=== PATIENT | male | born 1965 | race Caucasian/White ===

== ENCOUNTER 2018-05-10 21:35 | Emergency (ER) | payer OTHER ==
[~2018-05-10] VITALS: Ht 188 cm; Wt 83.9 kg
[2018-05-10 21:41] VITALS: BP 133/76
[2018-05-10] MEDS ORDERED: DIPHTH,PERTUSS(ACELL),TET TOX 0.5 ML DISP.SYRIN. VAX IM ONE (22:00)
--- NOTE | 2018-05-10 22:07 | PHYS DOC ---
Past Medical History Past Medical History: No Pertinent History Past Surgical History: No Surgical History Additional Information: 1 PPD Alcohol Use: None Drug Use: None Adult General Chief Complaint Chief Complaint: LACERATION/AVULSION HPI HPI Patient is a 52 year old male who presents with right middle finger laceration , patient states he was moving a steel chente which fell and smashed his right middle finger. Patient is right-handed. Review of Systems Review of Systems Constitutional: Denies fever or chills [] Musculoskeletal: Denies back pain or joint pain [] Integument: Reports right middle finger laceration Neurologic: Denies headache, focal weakness or sensory changes [] All other systems were reviewed and found to be within normal limits, except as documented in this note. Current Medications Current Medications Current Medications Medications (Trade) Dose Ordered Sig/Lea Start Time Stop Time Status Last Admin Dose Admin Acetaminophen/ Hydrocodone Bitart (Lortab 5/325) 1 tab 1X ONCE 05/10/18 22:30 05/10/18 22:31 DC Diphtheria/ Tetanus/Acell Pertussis (Boostrix) 0.5 ml ONCE ONCE 05/10/18 22:00 05/10/18 22:01 UNV Lidocaine/Sodium Bicarbonate (Buffered Lidocaine 1%) 6 ml 1X ONCE 05/10/18 22:30 05/10/18 22:31 DC 05/10/18 22:01 6 ML Allergies Allergies Allergies Coded Allergies Type Severity Reaction Last Updated Verified No Known Drug Allergies 05/10/18 No Physical Exam Physical Exam Constitutional: Well developed, well nourished, no acute distress, non-toxic appearance. [] Skin: Does aspect of the right middle finger at the PIP joint with a laceration approximately 2 cm long, this no obvious tendon involvement. Full range of motion including flexion and extension of the right middle finger at the PIP joint, DIP joint and MIP joint. Adequate radial, medial sensation to the right middle finger. +2 right radial pulse. Cap refill less than 2 seconds the right middle finger. Back: No tenderness, no CVA tenderness. [] Extremities: No tenderness, no cyanosis, no clubbing, ROM intact, no edema. [] Neurologic: Alert and oriented X 3, normal motor function, normal sensory function, no focal deficits noted. [] Psychologic: Affect normal, judgement normal, mood normal. [] Current Patient Data Vital Signs Vital Signs Date Time Temp Pulse Resp B/P (MAP) Pulse Ox O2 Delivery O2 Flow Rate FiO2 05/10/18 21:41 97.9 70 18 133/76 (95) 99 Room Air 97.9 EKG EKG [] Radiology/Procedures Radiology/Procedures Laceration/Wound Repair Wound Location: Right middle finger laceration Wound's Depth, Shape: Horizontal Wound Length (cm): Approximately 2 cm Wound Explored: clean Irrigated w/ Saline (ccs): 250 Betadine Prep?: Yes Anesthesia: 1% buffered lidocaine Volume Anesthetic (ccs): 3 mL Wound Repaired With: Ethilon Suture Size/Type: 5.0/interrupted sutures Number of Sutures: 5 Progress : Wound was covered with nonstick dressing and splinted by me. Neurovascular exam is intact post splinting. Course & Med Decision Making Course & Med Decision Making Pertinent Labs and Imaging studies reviewed. (See chart for details) This is a 52-year-old male patient presented to the ED today with right middle finger laceration after being cut at work. See history of present illness. Tetanus up-to-date. Right middle finger x-rays interpreted by radiologist are negative for any acute findings. Laceration was repaired by me as noted in procedures. Wound care instructions and return precautions provided. Follow-up with the PCP or ED in 7-10 days for suture removal Dragon Disclaimer Dragon Disclaimer This electronic medical record was generated, in whole or in part, using a voice recognition dictation system. Departure Departure Impression: Primary Impression: Laceration of middle finger Disposition: 01 HOME, SELF-CARE Condition: STABLE Patient Instructions: Fingertip Laceration Additional Instructions: You have right middle finger laceration that was closed with stitches. You can shower, keep the area clean and dry. Apply Neosporin to the area twice a day. Monitor the area for any worsening condition including increased redness warmth or yellow drainage from the area and return to the ED if they occur. Follow-up with your own doctor or the emergency room in 7-10 days for suture removal. Complete your antibiotics. Return to the ED at any point wound condition worsens. Scripts Cephalexin (CEPHALEXIN) 500 Mg Tablet 1 TAB PO QID, #40 TAB Prov: RAÚL STEVENS TELEGRAPH OFFICE MANAGER 05/10/18 Problem Qualifiers Primary Impression: Laceration of middle finger Encounter type: initial encounter Damage to nail status: without damage Foreign body presence: without foreign body Laterality: right Qualified Codes: S61.212A - Laceration without foreign body of right middle finger without damage to nail, initial encounter RAÚL STEVENS APRN May 10, 2018 22:07
--- NOTE | 2018-05-10 22:23 | RAD ---
EXAM: Right lung finger, 3 views. HISTORY: Laceration. COMPARISON: None. FINDINGS: 3 views of the right lung finger are obtained. There is no fracture, dislocation or subluxation. No radiodense foreign body is seen. There is a tiny ossicle along the palmar distal aspect of the third phalanx. There is soft tissue swelling surrounding the third proximal interphalangeal joint. IMPRESSION: No acute osseous finding. No radiodense foreign body. Electronically signed by: Raven Manrique MD (05/10/2018 10:19 PM) [facility]
[2018-05-10] MEDS ORDERED: HYDROcodone/APAP 5/325MG 1 TAB TABLET PO ONE (22:30)
[2018-05-10] MEDS ORDERED: LIDOCAINE WITH 8.4% SOD BICARB 3 ML DISP.SYRIN. INJ ONE (22:30)
[2018-05-10] MEDS ORDERED: CEPH500T PO (22:49)
== END 2018-05-10 23:21 | disposition home or self-care (01) ==
LOC: ER 21:35
DX: S61.212A Laceration without foreign body of right middle finger without damage to nail, initial encounter (principal); F17.200 Nicotine dependence, unspecified, uncomplicated; W26.8XXA Contact with other sharp object(s), not elsewhere classified, initial encounter; Y93.89 Activity, other specified; Y92.69 Other specified industrial and construction area as the place of occurrence of the external cause; Y99.0 Civilian activity done for income or pay
CPT/HCPCS: 12001; 73140; 99283